=== PATIENT | female | born 1980 | race Caucasian/White ===

== ENCOUNTER 2017-04-16 18:19 | Emergency (ER) | payer OTHER ==
[2017-04-16 18:25] VITALS: BP 139/81; PULSE 81; TEMP 98.3; BMI 32.9
--- NOTE | 2017-04-16 18:30 | PDOC ---
History of Present Illness - General Chief Complaint: Vaginal Bleeding Stated Complaint: 7 WEEKS ABD PAIN History Source: Patient - History of Present Illness Timing/Duration: reports: getting worse Past History - Past Medical History Allergies/Adverse Reactions: Allergies Allergy/AdvReac Type Severity Reaction Status Date / Time No Known Drug Allergies Allergy Verified 04/16/17 18:25 Home Medications: Ambulatory Orders Vit No.124/Iron/FA [ Vitamin Tablet] 1 each PO DAILY 05/03/15 Anemia: No Asthma: No Cancer: No Cardiac Disorders: No CVA: No COPD: No CHF: No Dementia: No Diabetes: No GI Disorders: No Disorders: No HTN: No Hypercholesterolemia: No Liver Disease: No Seizures: No Thyroid Disease: No Other medical history: denies - Surgical History Abdominal Surgery: No Appendectomy: No Cardiac Surgery: No Cholecystectomy: No Lung Surgery: No Neurologic Surgery: No Orthopedic Surgery: No - Reproductive History (#): 0 Para: 0 - Psycho/Social/Smoking Cessation Hx Anxiety: No Suicidal Ideation: No Smoking History: Never smoked Have you smoked in the past 12 months: No Information on smoking cessation initiated: No Hx Alcohol Use: No Drug/Substance Use Hx: No Substance Use Type: None Hx Substance Use Treatment: No Review of Systems - Review of Systems Constitutional: No: Chills, Fever, Weakness ABD/GI: No: Nausea, Vomiting, Abdominal cramping : No: Dysuria, Flank Pain *Physical Exam - Vital Signs Last Vital Signs Temp Pulse Resp BP Pulse Ox 98.3 F 81 17 139/81 100 04/16/17 18:23 04/16/17 18:23 04/16/17 18:23 04/16/17 18:23 04/16/17 18:23 - Physical Exam General Appearance: Yes: Appropriately Dressed. No: Apparent Distress HEENT: positive: Normal Voice Neck: positive: Supple Respiratory/Chest: negative: Respiratory Distress Female Pelvic Exam: positive: normal external exam, cervical os closed, normal adnexa, vaginal bleeding (small amount of BRB, no clots). negative: CMT, adnexal tenderness Gastrointestinal/Abdominal: positive: Soft. negative: Tender Integumentary: positive: Dry, Warm Neurologic: positive: Fully Oriented, Alert, Normal Mood/Affect ED Treatment Course - RADIOLOGY Radiology Studies Ordered: Category Date Time Status TRANSVAGINAL ULTRASOUND US [US] Stat Ultrasound 04/16/17 18:29 Ordered Medical Decision Making - Medical Decision Making 04/16/17 18:29 36 yo F, (1 spon AB), ~7 weeks by dates, here w/ vaginal bleed x 5 days. States she has had vaginal spotting for 5 days that suddenly worsened today while at the supermarket. No clots, abd pain, dysuria, n/v/f/c or dizziness/weakness. Scheduled for first in 2 days See exam 1st trimester bleed R/o ectopic vs threatened AB vs vag bleed in normal Stable w/ benign abd and closed os w/ small amount of bleed, no clots -T&S -beta -UA -US 04/16/17 19:00 Signed out to JUAN C Monzon pending labs, UA and US 04/16/17 18:44 *DC/Admit/Observation/Transfer Diagnosis at time of Disposition: Threatened , Abnormal ultrasound, Vaginal bleeding before 22 weeks gestation - Discharge Dispostion Disposition: HOME Condition at time of disposition: Stable - Referrals Referrals: Joe Beard MD [Staff Physician] - (keep appointment scheduled for 04/18/17 ) Howard Jiménez MD [Primary Care Provider] - - Patient Instructions Printed Discharge Instructions: DI for Threatened , DI for Vaginal Bleeding During Additional Instructions: Discharge Instructions: -Your ultrasound showed possible miscarriage AND possible ectopic -Please keep your appointment with Dr. Beard scheduled for 04/18/17 for repeat blood work and ultrasound -Return to the ER immediately if you develop any worsening or concerning symptoms, such as worsened abdominal pain or worsening of bleeding - Post Discharge Activity Work/School Note: Back to Work
[2017-04-16 18:55] LABS: URINE APPEARANCE CLEAR; URINE BILIRUBIN NEGATIVE (NEGATIVE); URINE BLOOD 2+ (NEGATIVE); URINE COLOR LT. YELLOW; URINE GLUCOSE (UA) NEGATIVE (NEGATIVE); URINE KETONE NEGATIVE (NEGATIVE); URINE LEUK ESTERASE NEGATIVE (NEGATIVE); URINE NITRITE NEGATIVE (NEGATIVE); URINE PROTEIN NEGATIVE (NEGATIVE); URINE UROBILINOGEN 0.2 mg/dL (0.2-1.0)
[2017-04-16 18:57] LABS: URINE MUCUS RARE; URINE RBC 43 /hpf (0-3); URINE WBC 1 /hpf (3-5)
--- NOTE | 2017-04-16 19:22 | PDOC ---
ED Treatment Course - ADDITIONAL ORDERS Additional order review: Laboratory Results 04/16/17 18:40 Urine Color Lt. yellow Urine Appearance Clear Urine pH 7.0 Urine Protein Negative Urine Glucose (UA) Negative Urine Ketones Negative Urine Blood 2+ H Urine Nitrite Negative Urine Bilirubin Negative Urine Urobilinogen 0.2 Ur Leukocyte Esterase Negative Urine RBC 43 Urine WBC 1 Ur Epithelial Cells Rare Urine Mucus Rare Progress Note - Progress Note Progress Note: I have received report from JUAN C Adorno regarding this patient. Pt's initial chief complaint: vaginal bleeding x 5 days; 7 weeks Pt's work up completed prior to sign out: UA Pt treatment given from prior staff: none Pt plan to be completed: awaiting type and screen, beta hcg and transvaginal ultrasound Dispo: Pending Medical Decision Making - Medical Decision Making A/P: 36 y/o, (1 spon AB), approximately 7 weeks by dates c/o vaginal bleeding x 5 days. Patient was initially evaluated by JUAN C Adorno. Plan is as follows: 1. type and screen 2. UA 3. Beta 4. Transvaginal US Transvaginal Ultrasound IMPRESSION: Probable gestational sac 6 weeks 1 day by measurement in lower uterine segment containing a small echogenic focus that could represent a pole, but with no visible heart rate. Circular structure in region of right fallopian tube, separate from right ovary, question concurrent ectopic versus exophytic corpus luteum or paraovarian cyst. Advise correlation with serial quantitative beta-hcg and follow up ultrasound. Spoke with Dr. 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 He looked at the images and does feel the patient is having a miscarriage. He is not sure what to make of the structure on the right ovary. He suggests close follow up and patient confirms she has an appointment on Monday. The patient was given all of the results and the reason for concern for possible heterotrophic . Instructed her to return to the ER immediately if she develops and abdominal pain or worsening of symptoms. Otherwise, she was instructed to keep her follow up appointment with Dr. Beard scheduled for 04/18/17. The patient verbalizes understanding of all instructions, has no further questions and is awaiting discharge. *DC/Admit/Observation/Transfer Diagnosis at time of Disposition: Threatened , Abnormal ultrasound, Vaginal bleeding before 22 weeks gestation - Discharge Dispostion Disposition: HOME Condition at time of disposition: Stable - Referrals Referrals: Howard Jiménez MD [Primary Care Provider] - Joe Beard MD [Staff Physician] - (keep appointment scheduled for 04/18/17 ) - Patient Instructions Printed Discharge Instructions: DI for Threatened , DI for Vaginal Bleeding During Additional Instructions: Discharge Instructions: -Your ultrasound showed possible miscarriage AND possible ectopic -Please keep your appointment with Dr. Beard scheduled for 04/18/17 for repeat blood work and ultrasound -Return to the ER immediately if you develop any worsening or concerning symptoms, such as worsened abdominal pain or worsening of bleeding - Post Discharge Activity Work/School Note: Back to Work
== END 2017-04-16 22:36 | disposition home or self-care (01) ==
LOC: JER 18:19
DX: O26.891 Other specified pregnancy related conditions, first trimester (principal); O20.0 Threatened abortion; N93.9 Abnormal uterine and vaginal bleeding, unspecified; O28.9 Unspecified abnormal findings on antenatal screening of mother; Z3A.01 Less than 8 weeks gestation of pregnancy
CPT/HCPCS: 36415; 76830-TC; 81003; 81015; 84702; 86850; 86900; 86901; 99284-25

== ENCOUNTER 2017-09-24 23:37 | Emergency (ER) | payer OTHER ==
[2017-09-25 00:23] VITALS: BP 122/70; PULSE 98; TEMP 98.6; BMI 35.1
[2017-09-25] MEDS ORDERED: ACETAMINOPHEN 325 MG TABLET (FP) PO ONE (00:33)
--- NOTE | 2017-09-25 00:33 | PDOC ---
History of Present Illness - General Chief Complaint: Cold Symptoms Stated Complaint: COLD SYMPTOMS Time Seen by Provider: 09/25/17 00:07 History Source: Patient Exam Limitations: No Limitations - History of Present Illness Initial Comments: 09/25/17 00:29 This is a 37-year-old who presents to the emergency department today with 2 weeks of nasal congestion, sore throat. Patient states she is 2 months with an LMP of 07/15/2017. She was treated for influenza her primary doctor approximately 2 weeks ago with Tamiflu. She states symptoms have never resolved and over the past 2 days have worsened. Over the past 2 days she's been experiencing nasal congestion, sore throat and fever. Patient has not tried to medicate with any [id number] medications for fear may interfere with . She denies chest pain, shortness of breath, abdominal pain, vaginal bleeding, vaginal discharge. PMH: Denies PSH: Denies NKDA PMD: Howard Jiménez UNDERCOVER COP: Claudy 09/25/17 00:48 Past History - Past Medical History Allergies/Adverse Reactions: Allergies Allergy/AdvReac Type Severity Reaction Status Date / Time No Known Drug Allergies Allergy Verified 09/25/17 00:22 Home Medications: Ambulatory Orders Vit No.124/Iron/Folic [ Vitamin Tablet] 1 each PO DAILY Amoxicillin - [Amoxicillin 500mg Capsule -] 500 mg PO BID #20 capsule 09/25/17 Ipratropium Freedom 15 ml NS TID #2 spray 09/25/17 Anemia: No Asthma: No Cancer: No Cardiac Disorders: No CVA: No COPD: No CHF: No Dementia: No Diabetes: No GI Disorders: No Disorders: No HTN: No Hypercholesterolemia: No Liver Disease: No Seizures: No Thyroid Disease: No - Surgical History Abdominal Surgery: No Appendectomy: No Cardiac Surgery: No Cholecystectomy: No Lung Surgery: No Neurologic Surgery: No Orthopedic Surgery: No - Reproductive History (#): 0 Para: 0 Spontaneous : 1 - Suicide/Smoking/Psychosocial Hx Smoking History: Never smoked Have you smoked in the past 12 months: No Information on smoking cessation initiated: No Hx Alcohol Use: No Drug/Substance Use Hx: No Substance Use Type: None Hx Substance Use Treatment: No Review of Systems - Review of Systems Able to Perform ROS?: Yes Is the patient limited Kyrgyz proficient: No Constitutional: Yes: See HPI HEENTM: Yes: See HPI Respiratory: Yes: Cough (dry cough x2 weeks) Cardiac (ROS): No: Symptoms Reported ABD/GI: No: Symptoms Reported : No: Symptoms Reported Musculoskeletal: No: Symptoms Reported Integumentary: No: Symptoms Reported Neurological: No: Symptoms reported *Physical Exam - Vital Signs Last Vital Signs Temp Pulse Resp BP Pulse Ox 98.6 F 98 H 20 122/70 98 09/25/17 00:22 09/25/17 00:22 09/25/17 00:22 09/25/17 00:22 09/25/17 00:22 - Physical Exam General Appearance: Yes: Appropriately Dressed. No: Apparent Distress HEENT: positive: Tonsillar Erythema, Nasal Congestion, Rhinorrhea. negative: Sinus Tenderness Neck: positive: Trachea midline, Supple Respiratory/Chest: positive: Lungs Clear, Normal Breath Sounds. negative: Respiratory Distress, Accessory Muscle Use Cardiovascular: positive: Regular Rhythm, Tachycardia. negative: Murmur Gastrointestinal/Abdominal: positive: Normal Bowel Sounds, Soft. negative: Tender Musculoskeletal: positive: Normal Inspection. negative: CVA Tenderness Extremity: positive: Normal Inspection, Normal Range of Motion Integumentary: positive: Normal Color, Dry, Warm Neurologic: positive: Fully Oriented, Alert, Normal Mood/Affect, Normal Response , Motor Strength 5/5 Medical Decision Making - Medical Decision Making 09/25/17 00:29 A/P: This is a 37-year-old who presents to the emergency department today with 2 weeks of nasal congestion, sore throat. Patient states she is 2 months with an LMP of 07/15/2017. She was treated for influenza her primary doctor approximately 2 weeks ago with Tamiflu. She states symptoms have never resolved and over the past 2 days have worsened. Over the past 2 days she's been experiencing nasal congestion, sore throat and fever. Patient has not tried to medicate with any [id number] medications for fear may interfere with . She denies chest pain, shortness of breath, abdominal pain, vaginal bleeding, vaginal discharge. Examination of the oropharynx reveals tonsillar erythema. No exudates are noted. No cobblestoning noted. Patient with anterior cervical lymphadenopathy with tenderness to submandibular lymph nodes. Warm to touch. Respirations even and unlabored. Lungs clear to auscultation bilaterally. Patient is tachycardic with regular rhythm. S1 and S2 are present. No murmur, rub or gallop noted. Normoactive bowel sounds. Abdomen soft nontender nondistended. No edema noted. Patient with Centor score of 3. Differential diagnosis is pharyngitis of streptococcal or viral origin. Given patient is currently , I will treat pharyngitis is if it is streptococcal. Patient has already been treated for influenza infection. I'll give the patient 975 mg of Tylenol now. I will collect influenza swab. I will reevaluate the patient after getting medicated. 09/25/17 01:57 Patient feels better. Influenza testing is negative. I will discharge the patient home with prescriptions for amoxicillin and Atrovent nasal spray. I discussed the physical exam findings, ancillary test results and final diagnoses with the patient. I answered all of the patient's questions. The patient was satisfied with the care received and felt comfortable with the discharge plan and treatment plan. The patient has an appointment with her obstetrics/gynecology nurse on 09/26 and will return to the Emergency Department with any new, persistent or worsening symptoms. 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 Take amoxicillin 500 mg twice a day for the next 10 days. Use Atrovent nasal spray 2 sprays per nostril 3 times a day. Do not use for more than 3 days. Throw away her toothbrush on the final day of antibiotics. Return to emergency department for abdominal pain, vaginal bleeding, vaginal discharge, or any other concerns. Thank you very much for choosing us to provide your emergent healthcare needs. - Post Discharge Activity
[2017-09-25] MEDS ORDERED: ACETAMINOPHEN 325 MG TABLET (FP) ONE (00:38)
== END 2017-09-25 02:23 | disposition home or self-care (01) ==
LOC: JER 23:37
DX: O26.892 Other specified pregnancy related conditions, second trimester (principal); J02.9 Acute pharyngitis, unspecified; Z3A.08 8 weeks gestation of pregnancy
CPT/HCPCS: 87804; 99281-25

== ENCOUNTER 2019-06-13 21:43 | Emergency (ER) | payer OTHER ==
[2019-06-13] MEDS ORDERED: KETOROLAC TROMETHAMINE 60 MG/2 ML VIAL IM ONE (21:49)
[2019-06-13] MEDS ORDERED: CYCLOBENZAPRINE HCL 10 MG TABLET (FP) PO ONE (21:49)
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
[2019-06-13 21:58] VITALS: BP 134/82; PULSE 86; TEMP 98.2; BMI 37.5
[2019-06-13] MEDS ORDERED: diazePAM 5 MG TABLET PO ONE (23:18)
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
[2019-06-14] MEDS ORDERED: KETOROLAC TROMETHAMINE 60 MG/2 ML VIAL ONE (00:22)
[2019-06-14] MEDS ORDERED: diazePAM 5 MG TABLET ONE (00:23)
== END 2019-06-14 01:20 | disposition home or self-care (01) ==
LOC: JER 21:43
PROC: 3E0233Z Introduction of Anti-inflammatory into Muscle, Percutaneous Approach (ICD-10-PCS; principal; 2019-06-13)
DX: S13.4XXA Sprain of ligaments of cervical spine, initial encounter (principal); M54.89 Other dorsalgia; V43.52XA Car driver injured in collision with other type car in traffic accident, initial encounter; Y92.414 Local residential or business street as the place of occurrence of the external cause; Y93.89 Activity, other specified; Y99.8 Other external cause status
CPT/HCPCS: 99283-25